=== PATIENT | male | born 1930 | race Caucasian/White ===

== ENCOUNTER 2016-12-21 09:05 | Observation (INO) | payer OTHER ==
--- NOTE | 2016-12-20 14:53 | GHP ---
[f rep st] PREOP HISTORY AND PHYSICAL DATE OF ADMISSION: 12/21/2016 ADMISSION DIAGNOSIS: Bladder cancer. HISTORY OF PRESENT ILLNESS: This is an 86-year-old gentleman whose primary care is Dr. Amisha Helton. He had gross hematuria; and on scoping, he was noted to have bladder cancer. At the present time, he is admitted for transurethral resection of the bladder tumor. PAST SURGERY HISTORY: Bladder tumor and hematuria. PAST SURGICAL HISTORY: Toe and foot surgery. MEDICATIONS: Include glucocorticoid, levothyroxine, loratadine, , lovastatin, Uribel, , and Aleve. ALLERGIES: Pollen and adhesive tape. FAMILY HISTORY: Noncontributory. SOCIAL HISTORY: . Former tobacco smoker. Minimal alcohol consumption. REVIEW OF SYSTEMS: Negative for cardiac, respiratory, GI, and endocrine. PHYSICAL EXAM: VITAL SIGNS: Stable. CHEST: Clear. HEART: Regular rate and rhythm. ABDOMEN: Normal. No organomegaly, rebound, or guarding at the present time. He is admitted for the TURBT. He has been informed that he has BPH and may need to undergo a TURP in the future, but the BT should be treated first. Written and verbal consent was obtained. Complications and options discussed. /[id number]/MODL MTDD
[~2016-12-21 09:05] MED LIST: ceFAZolin 2 GM/DEXTROSE 100 ML IV ONE
[2016-12-21] MEDS ORDERED: LIDOCAINE 1% 5 ML SDV ID PRN (09:29)
[2016-12-21] MEDS ORDERED: LR 1,000 ML IV ONE (09:29)
[2016-12-21] MEDS ORDERED: LIDOCAINE 2% JELLY 20 ML (UROJECT) ONE (09:45)
[2016-12-21 09:54] LABS: % IMMATURE GRANULYOCYTES 0.4 % (0.0-1.1); ABSOLUTE IMMATURE GRANULOCYTES 0.02 10^3/uL (0.00-0.10); ADD DIFF? NO; ADD MORPH? NO; ADD SCAN? NO; ATYPICAL LYMPHOCYTE FLAG 10 (0-99); FRAGMENT RBC FLAG 0 (0-99); HEMATOCRIT 43.3 % (40.0-51.0); HEMOGLOBIN 15.3 g/dL (13.7-17.5); LEFT SHIFT FLG 0 (0-99); LIPEMIA HEMOLYSIS FLAG 90 (0-99); MEAN CELL HEMOGLOBIN 34.8 pg (27.9-34.1); MEAN CELL HEMOGLOBIN CONCENTR. 35.3 g/dL (32.4-36.7); MEAN CELL VOLUME 98.4 fL (81.5-99.8); MEAN PLATELET VOLUME 9.1 fL (8.7-11.7); PLATELET CLUMPS FLAG 0 (0-99); PLATELET COUNT 209 10^3/uL (150-400); RED CELL DISTRIBUTION WIDTH 12.9 % (11.5-15.2)
[2016-12-21 10:10] LABS: ANION GAP 11 mEq/L (8-16); CALCIUM 9.2 mg/dL (8.5-10.4); CARBON DIOXIDE 26 mEq/l (22-31); CHLORIDE 104 mEq/L (97-110); CREATININE 0.9 mg/dL (0.7-1.3); GLOMERULAR FILTRATION RATE > 60; GLUCOSE 97 mg/dL (70-100); POTASSIUM 4.5 mEq/L (3.5-5.2); SODIUM 141 mEq/L (134-144)
[2016-12-21] MEDS ORDERED: PROPOFOL 200 MG/20 ML VIAL ONE (10:55)
[2016-12-21] MEDS ORDERED: LIDOCAINE 2% 100 MG/5 ML SYR IVP ONE (10:55)
[2016-12-21] MEDS ORDERED: fentaNYL 100 MCG/2 ML INJ ONE (10:55)
[2016-12-21] MEDS ORDERED: ONDANSETRON 4 MG/2 ML VIAL ONE (11:37)
[2016-12-21] MEDS ORDERED: ONDANSETRON 4 MG/2 ML VIAL IVP PRN (12:10)
[2016-12-21] MEDS ORDERED: ONDANSETRON DISINTEGRATING 4 MG TAB PO PRN (12:10)
[2016-12-21] MEDS ORDERED: ACETAMINOPHEN 325 MG TAB PO PRN (12:10)
[2016-12-21] MEDS ORDERED: OPIUM/BELLADONNA ALKALO SUPP PR PRN (12:10)
[2016-12-21] MEDS ORDERED: D5W LR 1,000 ML IV SCH (12:15)
--- NOTE | 2016-12-21 13:02 | GOP ---
[f rep st] OPERATIVE REPORT DATE OF OPERATION: 12/21/2016 SURGEON: Emre Frazier MD PREOPERATIVE DIAGNOSIS: Bladder cancer, large. POSTOPERATIVE DIAGNOSIS: Bladder cancer, large. PROCEDURE PERFORMED: Transurethral excision of the bladder cancer. FINDINGS: SPECIMENS: Sent to pathology. No complications encountered. ESTIMATED BLOOD LOSS: Less than 20 mL. DESCRIPTION OF PROCEDURE: This gentleman underwent general anesthesia by Dr. Whatley, and after jaime ropriate prep and draping and time-out, the resectoscope was passed into the bladder. He had an intr avesical lobe of the prostate and BPH. The bladder had +3 trabeculation, but he had a large tumor wi th multiple satellite lesions around it, and so with the loop, bipolar saline irrigation, the lesions were excised. There was no perforation of the bladder. Hemostasis cauterization. I spe nt quite a bit of time inflating and deflating the bladder to confirm there were no bleeding sites. The bladder free of all chips and clots. Visualization revealed no residual chips or clot s. No perforation of the bladder. The bladder wall was thinned in several areas, and his ureteral o rifices were preserved. At that point, Uro-jet placed in the urethra, a 22, 3-way catheter with 20 c c balloon inflated. Irrigation and he will be admitted for postoperative care. /[id number]/MODL
[2016-12-21] MEDS: D5W LR 1,000 ML IV SCH (15:36)
[2016-12-21] MEDS: HYDROCODONE/APAP 5/325 TAB PO PRN (23:37)
[2016-12-22] MEDS: D5W LR 1,000 ML IV SCH (02:03)
[2016-12-22 05:34] LABS: % IMMATURE GRANULYOCYTES 0.3 % (0.0-1.1); ABSOLUTE IMMATURE GRANULOCYTES 0.03 10^3/uL (0.00-0.10); ADD DIFF? NO; ADD MORPH? NO; ADD SCAN? NO; ATYPICAL LYMPHOCYTE FLAG 10 (0-99); FRAGMENT RBC FLAG 0 (0-99); HEMATOCRIT 38.7 % (40.0-51.0); HEMOGLOBIN 13.3 g/dL (13.7-17.5); LEFT SHIFT FLG 0 (0-99); LIPEMIA HEMOLYSIS FLAG 90 (0-99); MEAN CELL HEMOGLOBIN 34.6 pg (27.9-34.1); MEAN CELL HEMOGLOBIN CONCENTR. 34.4 g/dL (32.4-36.7); MEAN CELL VOLUME 100.8 fL (81.5-99.8); MEAN PLATELET VOLUME 9.2 fL (8.7-11.7); PLATELET CLUMPS FLAG 0 (0-99); PLATELET COUNT 176 10^3/uL (150-400); RED BLOOD CELL COUNT 3.84 10^6/uL (4.40-6.38); RED CELL DISTRIBUTION WIDTH 13.1 % (11.5-15.2)
[2016-12-22 07:11] VITALS: RESP 18; TEMP 98.3
[2016-12-22] MEDS: HYDROCODONE/APAP 5/325 TAB PO PRN (08:21)
[2016-12-22 10:07] VITALS: BP 141/87; PULSE 101
[2016-12-22 10:23] VITALS: O2SAT 90
--- NOTE | 2016-12-22 14:16 | GDS ---
[f rep st] DISCHARGE SUMMARY PREOPERATIVE DIAGNOSIS: Remains unchanged, bladder cancer. POSTOPERATIVE DIAGNOSIS: Remains unchanged, bladder cancer. HOSPITAL COURSE: The patient was admitted for transurethral excision of bladder cancer. He underwen t the procedure without difficulty. He is being discharged home in good condition with a catheter in place. He is to follow up in our office early next week for catheter removal and subsequent followu p for review of pathology when available. /[id number]/MODL
== END 2016-12-22 16:15 | disposition home or self-care (01) ==
LOC: F3N 09:05 → F1N 13:02
PROVIDERS: ADMIT Specialist; ATTEND Specialist
PROC: 0TBB8ZZ Excision of Bladder, Via Natural or Artificial Opening Endoscopic (ICD-10-PCS; principal; 2016-12-21 10:45)
DX: C67.9 Malignant neoplasm of bladder, unspecified (principal)
CPT/HCPCS: 52240; 97161; 97165; G8978; G8979; G8987; G8988; G8989; J0690; J2001; J2405; J2704; J3010

== ENCOUNTER 2017-05-10 09:55 | Observation (INO) | payer OTHER ==
--- NOTE | 2017-05-09 17:34 | GHP ---
[f rep st] PREOP HISTORY AND PHYSICAL DATE OF ADMISSION: 05/10/2017 ADMISSION DIAGNOSES: Urinary obstruction, BPH, and gross hematuria. HISTORY OF PRESENT ILLNESS: This gentleman's had hematuria noted in 09/2016 and he has been evaluat ed and this has revealed that he has had multiple bladder cancers in the past. He has a single dive rticula of the bladder and at the present time, he has urinary obstruction and is requiring a transu rethral resection of the prostate. PAST HISTORY: Hematuria, cancer in the dome of the bladder. PAST SURGERY: TURBT, foot surgery. MEDICATIONS: Include glucocorticoid, levothyroxine, loratadine, pantoprazole, pravastatin, Tylenol, Uribel. ALLERGIES: Adhesive and pollen. FAMILY HISTORY: Denies family history of problems. SOCIAL HISTORY: Light consumption of alcohol. . Former smoker. REVIEW OF SYSTEMS: Negative cardiac, respiratory, GI, and endocrine. PHYSICAL EXAM: VITAL SIGNS: Stable. CHEST: Clear. HEART: Regular rate and rhythm. ABDOMEN: N ormal. No organomegaly, rebound, or guarding. EXTREMITIES: Lower extremities are normal at the pr esent time. PLAN: He is admitted for the TUR of the prostate. His prostate does have multiple nodules that hav e a firm consistency. /[id number]/MODL
--- NOTE | 2017-05-10 07:24 | PDHPUP ---
History & Physical Update H&P update statement: This history and physical update is based on an assessment of the patient which was completed after admission or registration (within 24 hours), but prior to the surgery/procedure. H&P update: H&P reviewed & patient examined, no change in patient's condition since H&P completed H&P changes: none
[~2017-05-10 09:55] MED LIST changes: +D5W LR 1,000 ML IV ONE
[2017-05-10] MEDS ORDERED: LR 1,000 ML IV ONE (10:49)
[2017-05-10] MEDS ORDERED: LIDOCAINE 1% 2 ML INJ ONE (11:10)
[2017-05-10] MEDS ORDERED: LIDOCAINE 1% 2 ML INJ ID PRN (11:20)
[2017-05-10] MEDS ORDERED: LIDOCAINE 2% JELLY 20 ML (UROJECT) ONE (11:26)
[2017-05-10] MEDS ORDERED: CEFAZOLIN 2 GM/DEXTROSE/100 ML BAG IV ONE (11:29)
[2017-05-10] MEDS ORDERED: fentaNYL 100 MCG/2 ML INJ ONE (11:37)
[2017-05-10] MEDS ORDERED: MIDAZOLAM 2 MG/2 ML VIAL ONE (11:37)
[2017-05-10] MEDS ORDERED: PROPOFOL/EMULSION 500 MG/50 ML BOTTLE IV ONE (11:37)
[2017-05-10] MEDS ORDERED: OXYCODONE/APAP 5/325 TAB PO PRN (12:28)
[2017-05-10] MEDS ORDERED: HYDROCODONE/APAP 5/325 TAB PO PRN ×2 (12:28→12:34)
[2017-05-10] MEDS ORDERED: NALOXONE HCL 0.4 MG/ML INJ IVP PRN (12:28)
[2017-05-10] MEDS ORDERED: ACETAMINOPHEN 325 MG TAB PO PRN (12:34)
[2017-05-10] MEDS ORDERED: OPIUM/BELLADONNA ALKALO SUPP PR PRN (12:34)
[2017-05-10] MEDS ORDERED: ONDANSETRON 4 MG/2 ML VIAL IVP PRN (12:34)
[2017-05-10] MEDS ORDERED: ONDANSETRON DISINTEGRATING 4 MG TAB PO PRN (12:34)
--- NOTE | 2017-05-10 12:39 | POSTOPPROG ---
Post Op Note Date of Operation: 05/10/17 Surgeon: Emre Frazier Anesthesiologist: Brain Anesthesia: LMA Pre-op Diagnosis: bph Post-op Diagnosis: anahi Indication: retention Procedure: turp Inf/Abcess present in the surg proc area at time of surgery?: No EBL: Minimal Complications: none Drains: Other (quinonez) Specimen(s): none,-- dictated
[2017-05-10] MEDS ORDERED: D5W LR 1,000 ML IV SCH (12:45)
--- NOTE | 2017-05-10 12:59 | POSTANESTH ---
Post Anesthetic Evaluation Cardiovascular Status: Normal, Stable Respiratory Status: Normal, Stable Pain Control: Adequate, Prn Tx Ordered Complications Possibly Related to Anesthesia: None Noted (GA tolerated well)
[2017-05-10] MEDS ORDERED: ENALAPRILAT DIHYDRATE 1.25 MG/ML VIAL ONE ×2 (13:19→13:50)
[2017-05-10] MEDS: ENALAPRILAT DIHYDRATE 1.25 MG/ML VIAL IVP PRN ×2 (13:21→13:51)
[2017-05-10] MEDS ORDERED: HYDROmorphONE/DILAUDID 1 MG/ML SYR ONE (13:49)
[2017-05-10] MEDS ORDERED: OPIUM/BELLADONNA ALKALO SUPP PR ONE (13:50)
[2017-05-10] MEDS: HYDROmorphONE/DILAUDID 1 MG/ML SYR IVP PRN ×3 (13:53→14:35)
--- NOTE | 2017-05-10 14:39 | GOP ---
[f rep st] OPERATIVE REPORT DATE OF OPERATION: 05/10/2017 SURGEON: Emre Frazier MD ANESTHESIA: General. ANESTHESIOLOGIST: Wander Gutierrez MD PREOPERATIVE DIAGNOSIS: 1. Benign prostatic hypertrophy. 2. Elevated PSA. 3. Prostate nodules. 4. Urinary obstruction/retention. POSTOPERATIVE DIAGNOSIS: 1. Benign prostatic hypertrophy. 2. Elevated PSA. 3. Prostate nodules. 4. Urinary obstruction/retention. PROCEDURE PERFORMED: After undergoing appropriate general anesthesia, he was prepped and draped in normal sterile fashion, and a scope was passed into his bladder under direct vision. He had an intr avesical lobe of the prostate and a hypervascular area to the prostatic fossa. Bladder had +3 to 4 trabeculation with no tumors identified. TUR was begun, taking down the intravesical lobe of the pr ostate, right lateral lobe and right posterior lobe resected; left lateral lobe and left portion of the posterior lobe resected. Bladder was Ellik'd free of all chips and clots. Visualization reveal ed no residual chips or clots. Ureteral orifices were in normal position. Clear efflux. External sphincter approximated at the midline symmetrically and verumontanum preserved. Specimen sent for p athology. He will be admitted for postoperative care/observation. FINDINGS: DESCRIPTION OF PROCEDURE: PROCEDURE: Transurethral excision of the prostate. /[id number]/MODL
--- NOTE | 2017-05-11 14:01 | GDS ---
[f rep st] DISCHARGE SUMMARY PREOPERATIVE DIAGNOSES: Benign prostatic hypertrophy, urinary obstruction, elevated PSA, prostate n odules. POSTOPERATIVE DIAGNOSES: Benign prostatic hypertrophy, urinary obstruction, elevated PSA, prostate nodules. This is a pleasant gentleman who was evaluated in our office and found to have an obstruction of his urinary ability and after discussion of options elected to have a transurethral excision of the pro state done. He underwent this without any difficulty. Catheter will be removed this morning, and on ce the patient has voids, he will be discharged home in good condition to follow up with us in [place]. /[id number]/MODL
[2017-05-11 16:08] VITALS: BP 136/87; PULSE 68; RESP 16; TEMP 97.9; O2SAT 92
== END 2017-05-11 17:26 | disposition home or self-care (01) ==
LOC: F1N 09:55 → INTOOBSV 09:55 → SCHOBSVTOIN 10:44 → F1N 15:30
PROVIDERS: ADMIT Specialist; ATTEND Specialist
PROC: 0VT08ZZ Resection of Prostate, Via Natural or Artificial Opening Endoscopic (ICD-10-PCS; principal; 2017-05-10 11:30)
DX: C67.1 Malignant neoplasm of dome of bladder (principal)
CPT/HCPCS: 52630; J0690; J1170; J2250; J2704; J3010